=== PATIENT | female | born 1995 | race African-American/Black ===

== ENCOUNTER 2024-02-29 12:20 | Emergency (ER) | payer SELFPAY ==
[~2024-02-29] VITALS: Ht 167.6 cm; Wt 78.0 kg
[2024-02-29 12:27] VITALS: BP 120/86; PULSE 84; RESP 14; TEMP 98.5; O2SAT 98
[2024-02-29] MEDS: SODIUM CHLORIDE 0.9% 1,000 ML IV ONE (13:29)
[2024-02-29 14:05] LABS: BASOPHILS % 0.3 % (0.0-2.0); DIFFERENTIAL COMMENT 0; EOSINOPHILS % 0.4 % (0.0-5.0); HEMATOCRIT. 35.8 % (36.0-48.0); HEMOGLOBIN. 11.5 g/dL (12.0-16.0); LYMPHOCYTES % 40.6 % (20.0-50.0); MEAN CORPUSCULAR HEMOGLOBIN 27.8 pg (28.0-32.0); MONOCYTES % 6.2 % (2.0-8.0); NEUTROPHILS % 52.5 % (40.0-76.0); PLATELET 266 x1000/uL (130-400); RED BLOOD CELL COUNT 4.12 mill/uL (4.2-5.4); RED CELL DISTRIBUTION WIDTH 16.9 % (11.6-14.6); WHITE BLOOD COUNT 4.3 x1000/uL (4.5-11.0)
[2024-02-29 14:28] LABS: HCG SCREEN NEGATIVE
[2024-02-29 14:32] LABS: CARBON DIOXIDE 24 mEq/L (21-32); CHLORIDE 111 mEq/L (98-107); POTASSIUM 3.7 mEq/L (3.5-5.1); SODIUM 145 mEq/L (136-145)
[2024-02-29 14:33] LABS: CALCIUM 8.9 mg/dL (8.7-10.4)
[2024-02-29 14:37] LABS: CREATININE 0.8 mg/dL (0.6-1.0)
[2024-02-29 14:38] LABS: ETHANOL BLOOD 300 mg/dL (<10); GLUCOSE 93 mg/dL (70-105); UREA NITROGEN BLOOD 7 mg/dL (9-23)
[2024-02-29 14:39] LABS: ACETAMINOPHEN < 2 ug/mL (10-30); ALANINE AMINOTRANSFERASE 19 IU/L (10-49); ASPARTATE AMINOTRANSFERASE 22 IU/L (<34)
[2024-02-29 14:40] LABS: ALBUMIN 4.6 g/dL (3.2-4.8); BILIRUBIN TOTAL 0.3 mg/dL (0.1-1.0); PROTEIN TOTAL 7.6 g/dL (6.0-8.3)
[2024-02-29 14:55] LABS: TROPONIN I HIGH SENSITIVITY < 4 ng/L (3.0-34)
[2024-02-29 15:01] LABS: BILIRUBIN DIRECT < 0.1 mg/dL (<=3.0)
== END 2024-02-29 15:16 | disposition left against medical advice (07) ==
LOC: ER 12:34 → EDBD 12:34 → ER 15:16
DX: R41.82 Altered mental status, unspecified (principal); F10.129 Alcohol abuse with intoxication, unspecified; Z20.822 Contact with and (suspected) exposure to COVID-19; Y90.8 Blood alcohol level of 240 mg/100 ml or more
CPT/HCPCS: 80076; 80048; 80307; 80329; 80320; 84703; 85025; 84484; 36415; 71045; 93005; 96360; 99285; 87426; J7030; Z7610 ×2; G0480